=== PATIENT | male | born 1990 | race African-American/Black ===

== ENCOUNTER 2017-08-27 03:53 | Inpatient (IN) | payer SELFPAY, OTHER ==
[2017-08-27] MEDS: SOD CHLORIDE 0.9% 1,000 ML IV ×2 (04:56→10:49)
[2017-08-27 04:57] LABS: ADD MAN DIFF? NO
[2017-08-27] MEDS: morphine 4 MG/ML VIAL IV (04:57)
[2017-08-27] MEDS: ONDANSETRON 4 MG INJ IV ×2 (04:57→06:38)
[2017-08-27 05:02] LABS: WHITE BLOOD COUNT 9.2 10^3/ul (4.8-10.8)
[2017-08-27 05:02] LABS: BASOPHILS % 0.4 % (0.0-2.0); EOSINOPHILS # 0.1 10^3/ul (0.0-0.5); HEMATOCRIT 46.7 % (42.0-52.0); HEMOGLOBIN 16.2 g/dl (14.0-18.0); LYMPHOCYTES # 2.3 10^3/ul (0.8-2.9); LYMPHOCYTES % 25.4 % (15.0-51.0); MEAN CORPUSCULAR HEMOGLOBIN 30.6 pg (29.0-33.0); MEAN CORPUSCULAR HGB CONC 34.7 g/dl (32.0-37.0); MEAN CORPUSCULAR VOLUME 88.1 fl (82.0-101.0); MEAN PLATELET VOLUME 12.8 fl (7.4-10.4); MONOCYTES % 10.8 % (0.0-11.0); NEUTROPHIL # 5.7 10^3/ul (1.6-7.5); NEUTROPHILS % 62.2 % (39.0-77.0); PLATELET COUNT 201 10^3/UL (140-415)
[2017-08-27 05:20] LABS: ADD UMIC NO; UR ASCORBIC ACID NEGATIVE (NEGATIVE); UR BILIRUBIN (Dip) NEGATIVE (NEGATIVE); UR BLOOD (Dip) NEGATIVE (NEGATIVE); UR CLARITY CLEAR (CLEAR); UR COLOR YELLOW (YELLOW); UR GLUCOSE (Dip) NEGATIVE (NEGATIVE); UR KETONES (Dip) 2+ mg/dL (NEGATIVE); UR LEUKOCYTE ESTERASE (Dip) NEGATIVE Leu/ul (NEGATIVE); UR NITRITE (Dip) NEGATIVE (NEGATIVE); UR SPECIFIC GRAVITY (Dip) 1.008 (1.003-1.030); UR TOTAL PROTEIN (Dip) NEGATIVE (NEGATIVE); UR UROBILINOGEN (Dip) NEGATIVE (NEGATIVE)
[2017-08-27 05:22] LABS: ALANINE AMINOTRANSFERASE 27 IU/L (13-69); ALBUMIN 4.6 g/dl (3.3-4.9); ALBUMIN/GLOBULIN RATIO 1.31; ALKALINE PHOSPHATASE 90 IU/L (42-121); AMYLASE 43 U/L (11-123); ANION GAP 16 (8-16); ASPARTATE AMINO TRANSFERASE 26 IU/L (15-46); BILIRUBIN,INDIRECT 1.5 mg/dl (0-1.1); BILIRUBIN,TOTAL 1.5 mg/dl (0.2-1.3); BLOOD UREA NITROGEN 4 mg/dl (7-20); CALCIUM 9.9 mg/dl (8.4-10.2); CARBON DIOXIDE 29 mmol/L (21-31); CHLORIDE 104 mmol/L (97-110); CREATININE 0.86 mg/dl (0.61-1.24); GLUCOSE 90 mg/dl (70-220); LIPASE 29 U/L (23-300); POTASSIUM 3.9 mmol/L (3.5-5.1); SODIUM 145 mmol/L (135-144); TOTAL PROTEIN 8.1 g/dl (6.1-8.1)
[2017-08-27] MEDS: HYDROmorphONE 0.5 MG/0.5 ML SYG IV ×5 (06:39→23:28)
[2017-08-27] MEDS: PIPER-TAZO 3.375 GM IV (PMX) 100 ML IVPB ×3 (06:41→18:00)
[2017-08-27] MEDS ORDERED: ACETAMINOPHEN 325 MG TAB PO ×2 (07:00→10:30)
[2017-08-27] MEDS ORDERED: BUPIVACAINE 0.25%/EPI (MDV) 50 ML VIAL INJ (07:00)
[2017-08-27] MEDS ORDERED: ONDANSETRON 4 MG INJ IV ×3 (07:00→16:30)
[2017-08-27] MEDS: HYDROmorphONE 1 MG/ML SYG IV (09:26)
[2017-08-27] MEDS ORDERED: morphine 2 MG INJ IV (10:30)
[2017-08-27] MEDS ORDERED: NACL 0.9% 3 ML SYG IV (10:30)
[2017-08-27] MEDS ORDERED: DOCUSATE SODIUM 100 MG CAP PO ×2 (10:30→18:30)
[2017-08-27] MEDS ORDERED: morphine LIQ (10 MG/5 ML) CUP PO (11:00)
[2017-08-27] MEDS ORDERED: HYDROmorphONE (0.2 MG/ML) 10ML SYG IV ×2 (16:30)
[2017-08-27] MEDS: BUPIVACAINE 0.5%/EPI 1:200,000 50 ML (MDV) INJ (16:52)
[2017-08-27] MEDS ORDERED: ROPIVACAINE 0.2% 20 ML VIAL (17:50)
[2017-08-27] MEDS ORDERED: MIDAZOLAM 1 MG/ML 2 ML INJ (17:50)
[2017-08-27] MEDS ORDERED: ONDANSETRON 4 MG INJ (17:50)
[2017-08-27] MEDS ORDERED: PROPOFOL 20 ML (17:50)
[2017-08-27] MEDS ORDERED: ROCURONIUM 50 MG INJ (17:50)
[2017-08-27] MEDS ORDERED: LIDOCAINE 2% (SDV) 5 ML INJ (17:50)
[2017-08-27] MEDS ORDERED: DEXAMETHASONE 4 MG/ML 1 ML INJ (17:50)
[2017-08-27] MEDS ORDERED: FENTAnyl 50 MCG/ML VIAL (17:50)
[2017-08-27] MEDS ORDERED: SUGAMMADEX SODIUM 200 MG/2 ML VIAL IV (18:03)
[2017-08-27] MEDS ORDERED: NA PHOSPHATE/BIPHOS 133 ML ENEMA PR (18:30)
[2017-08-27] MEDS ORDERED: BISACODYL 10 MG SUPP PR (18:30)
[2017-08-27] MEDS ORDERED: HYDROmorphONE 0.5 MG/0.5 ML SYG IV (18:30)
[2017-08-27] MEDS ORDERED: HYDROCODONE/APAP (5/325) TAB PO (18:30)
[2017-08-27] MEDS: FAMOTIDINE 20 MG TAB PO (21:00)
[2017-08-28] MEDS: HYDROCODONE/APAP (5/325) TAB PO ×5 (00:20→19:02)
[2017-08-28] MEDS: HYDROmorphONE 0.5 MG/0.5 ML SYG IV ×2 (03:05→07:50)
[2017-08-28 05:17] LABS: ADD MAN DIFF? NO
[2017-08-28 05:33] LABS: WHITE BLOOD COUNT 15.1 10^3/ul (4.8-10.8)
[2017-08-28 05:33] LABS: ABNORMAL IP MESSAGE 1; BASOPHILS % 0.1 % (0.0-2.0); HEMATOCRIT 41.4 % (42.0-52.0); HEMOGLOBIN 14.1 g/dl (14.0-18.0); LYMPHOCYTES # 1.2 10^3/ul (0.8-2.9); LYMPHOCYTES % 7.7 % (15.0-51.0); MEAN CORPUSCULAR HEMOGLOBIN 30.6 pg (29.0-33.0); MEAN CORPUSCULAR HGB CONC 34.1 g/dl (32.0-37.0); MEAN CORPUSCULAR VOLUME 89.8 fl (82.0-101.0); MEAN PLATELET VOLUME 13.2 fl (7.4-10.4); MONOCYTE # 0.6 10^3/ul (0.3-0.9); MONOCYTES % 4.2 % (0.0-11.0); NEUTROPHIL # 13.2 10^3/ul (1.6-7.5); NEUTROPHILS % 87.5 % (39.0-77.0); PLATELET COUNT 175 10^3/UL (140-415); POSITIVE DIFF @See below; RED BLOOD COUNT 4.61 10^6/ul (4.70-6.10); RED CELL DISTRIBUTION WIDTH 13.1 % (11.5-14.5)
[2017-08-28 05:37] LABS: ALANINE AMINOTRANSFERASE 48 IU/L (13-69); ALBUMIN 3.7 g/dl (3.3-4.9); ALBUMIN/GLOBULIN RATIO 1.12; ALKALINE PHOSPHATASE 72 IU/L (42-121); ANION GAP 15 (8-16); ASPARTATE AMINO TRANSFERASE 52 IU/L (15-46); BILIRUBIN,INDIRECT 1.5 mg/dl (0-1.1); BILIRUBIN,TOTAL 1.5 mg/dl (0.2-1.3); BLOOD UREA NITROGEN 6 mg/dl (7-20); CALCIUM 9.5 mg/dl (8.4-10.2); CARBON DIOXIDE 28 mmol/L (21-31); CHLORIDE 102 mmol/L (97-110); CREATININE 0.77 mg/dl (0.61-1.24); GLUCOSE 111 mg/dl (70-220); PHOSPHORUS 4.7 mg/dl (2.5-4.9); POTASSIUM 4.3 mmol/L (3.5-5.1); SODIUM 141 mmol/L (135-144)
[2017-08-28 05:45] LABS: B-TYPE NATRIURETIC PEPTIDE 71 PG/ML (0-125)
[2017-08-28 05:59] LABS: INR 1.23; PROTIME 15.7 Sec (11.9-14.9); PT RATIO 1.2
[2017-08-28 06:00] LABS: PARTIAL THROMBOPLASTIN TIME 29.9 Sec (25.0-35.0)
[2017-08-28 06:01] LABS: MAGNESIUM 1.6 mg/dl (1.7-2.5)
[2017-08-28 06:06] LABS: LACTIC ACID 1.4 mmol/L (0.5-2.0)
[2017-08-28] MEDS: FAMOTIDINE 20 MG TAB PO ×2 (07:51→20:23)
[2017-08-28] MEDS: ENOXAPARIN 40 MG/0.4 ML SYG SC (08:36)
[2017-08-28] MEDS: MAGNESIUM SULFATE 1 GM/D5W 100 ML IVPB (10:39)
[2017-08-29] MEDS ORDERED: NA PHOSPHATE/BIPHOS 133 ML ENEMA PR (09:00)
[2017-08-29] MEDS ORDERED: DOCUSATE SODIUM 100 MG CAP PO (09:00)
== END 2017-08-28 20:55 | disposition home or self-care (01) | DRG 419 ==
LOC: E/R 03:53 → MS1 06:33
PROC: 0FT44ZZ Resection of Gallbladder, Percutaneous Endoscopic Approach (ICD-10-PCS; principal; 2017-08-27 16:00)
DX: K80.12 Calculus of gallbladder with acute and chronic cholecystitis without obstruction (principal); E66.9 Obesity, unspecified; F17.210 Nicotine dependence, cigarettes, uncomplicated; F12.90 Cannabis use, unspecified, uncomplicated; Z68.31 Body mass index [BMI] 31.0-31.9, adult
CPT/HCPCS: 36415; 74176; 80053; 81003; 82150; 82962; 83605; 83690; 83735; 83880; 84100; 85025; 85610; 85730; 88304; 96361; 96365; 96375; 96376; 99285-25